=== PATIENT | male | born 1950 | race Caucasian/White ===

== ENCOUNTER 2016-08-05 07:07 | Day surgery (SDC) | payer MEDICARE, OTHER ==
[~2016-08-05 07:07] MED LIST: ADVIL200 M1 PO; ASPIR 8181 M1 PO; ASPIR 8181 MG PO; AVELOX400 MG PO; CATAPRES0.1 MG; CATAPRES0.1 MG PO; COUMADIN5 M2 PO; H PO; IBUPROFEN800 M1 PO; LOPRESSOR50 M1 PO; LORTAB 5-325 M1 EACH PO; MEN'S MULTI-VI1 EACH PO; SULFAMYLON453.6 GM TOP; TYLENOL EXTRA500 M1 PO; TYLENOL500 MG PO; WARFARIN SODIUM5 M2 PO; XARELTO20 M1 PO; [UNRECOGNIZED DRUG - CODE] PO
[2016-08-05 08:21] LABS: INR 1.2 INR (0.9-1.1); PROTHROMBIN TIME 13.4 SECONDS (9.0-13.6)
== END 2016-08-05 11:15 ==
LOC: SRG 07:07 → SHSB 07:14
PROVIDERS: Anesthesiology
PROC: 0HRKXK3 Replacement of Right Lower Leg Skin with Nonautologous Tissue Substitute, Full Thickness, External Approach (ICD-10-PCS; principal; 2016-08-05)
DX: I83.018 Varicose veins of right lower extremity with ulcer other part of lower leg (principal); L97.819 Non-pressure chronic ulcer of other part of right lower leg with unspecified severity; I48.0 Paroxysmal atrial fibrillation; E11.9 Type 2 diabetes mellitus without complications; E66.9 Obesity, unspecified; Z68.41 Body mass index [BMI] 40.0-44.9, adult; Z87.891 Personal history of nicotine dependence; Z88.0 Allergy status to penicillin; Z88.2 Allergy status to sulfonamides; Z98.890 Other specified postprocedural states
CPT/HCPCS: J0171; J2250; J3370; Q4100

== ENCOUNTER 2016-08-19 07:30 | Day surgery (SDC) | payer MEDICARE, OTHER ==
[2016-08-19 08:53] LABS: INR 1.1 INR (0.9-1.1); PROTHROMBIN TIME 12.2 SECONDS (9.0-13.6)
== END 2016-08-19 11:25 ==
LOC: SRG 07:30 → SHSC 07:34
PROVIDERS: Anesthesiology
PROC: 0HRKX74 Replacement of Right Lower Leg Skin with Autologous Tissue Substitute, Partial Thickness, External Approach (ICD-10-PCS; principal; 2016-08-19)
DX: S81.802A Unspecified open wound, left lower leg, initial encounter (principal); I83.019 Varicose veins of right lower extremity with ulcer of unspecified site; E66.01 Morbid (severe) obesity due to excess calories; I48.0 Paroxysmal atrial fibrillation; I10 Essential (primary) hypertension; M19.042 Primary osteoarthritis, left hand; M19.041 Primary osteoarthritis, right hand; E11.9 Type 2 diabetes mellitus without complications; Z79.01 Long term (current) use of anticoagulants; Z79.82 Long term (current) use of aspirin; Z79.899 Other long term (current) drug therapy; Z88.0 Allergy status to penicillin; Z88.2 Allergy status to sulfonamides; Z87.891 Personal history of nicotine dependence; Z98.890 Other specified postprocedural states; X58.XXXA Exposure to other specified factors, initial encounter
CPT/HCPCS: J0171; J1580; J3370